=== PATIENT | female | born 1955 | race African-American/Black ===

== ENCOUNTER 2017-06-17 08:00 | Outpatient (CLI) | payer BC | END 2017-06-17 08:01 | disposition home or self-care (01) | LOC: BICMAMMO 08:00 | PROVIDERS: ATTEND Family Medicine | DX: Z12.31 Encounter for screening mammogram for malignant neoplasm of breast (principal); R92.1 Mammographic calcification found on diagnostic imaging of breast; Z80.3 Family history of malignant neoplasm of breast | CPT/HCPCS: 77067; G0202 ==

== ENCOUNTER 2017-12-03 15:21 | Outpatient (CLI) | payer BC ==
--- NOTE | 2017-12-03 16:21 | RAD ---
CHEST 2 VIEWS: Date: 12/03/17 HISTORY: Cough. Bronchitis. FINDINGS: Cardiac silhouette and pulmonary vasculature are unremarkable. Mediastinum is midline. No confluent a ir space consolidation, pneumothorax, or pleural fluid. IMPRESSION: No active cardiopulmonary abnormalities are demonstrated. POS: [facility]
== END 2017-12-03 15:22 | disposition home or self-care (01) ==
LOC: SCSRAD 15:21
PROVIDERS: ATTEND Family Medicine
DX: J45.30 Mild persistent asthma, uncomplicated (principal)
CPT/HCPCS: 71046

== ENCOUNTER 2017-12-30 13:30 | Emergency (ER) | payer BC ==
[2017-12-30 14:22] LABS: #Eosinphils 0.2 thou/uL (0.0-0.7); #Lymphocytes 1.8 thou/uL (1.20-3.40); #Monocytes 0.5 thou/uL (0.11-0.59); #Neutrophils 2.2 thou/uL (1.40-6.50); %Basophils 0.6 % (0.0-1.0); %Eosinophils 5.1 % (0.0-10.0); %Neutrophils 46.3 % (42.0-75.0); Hemoglobin 10.6 g/dL (12.0-16.0); Mean Corpuscular HGB CONC 32.6 g/dL (32.0-36.0); Mean Corpuscular Hemoglobin 24.3 pg (27.0-31.0); Mean Corpuscular Volume 74.4 fL (78.0-98.0); Mean Platelet Volume 8.7 fL (7.4-10.4); Platelet Count 241 thou/uL (130-400); RBC Distribution Width 14.5 % (11.5-14.5); Red Blood Cell (RBC) Count 4.37 mill/uL (4.20-5.40); White Blood Cell (WBC) Count 4.7 thou/uL (4.8-10.8)
--- NOTE | 2017-12-30 14:27 | RAD ---
UPRIGHT PORTABLE CHEST 1 VIEW: Date: 12/30/17 HISTORY: 62-year-old female with history of chest pain, shortness of breath, and mid sternal chest pain. COMPARISON: 12/03/17. FINDINGS: Heart size is within normal limits. The lungs are clear. No pneumonia, edema, pleural effusion, or ot her acute process. IMPRESSION: No acute intrathoracic disease. POS: [facility]
[2017-12-30] MEDS ORDERED: methylPREDNISolone Sod Succ/PF 125 MG/2 ML VIAL ONE (14:28)
[2017-12-30 14:43] LABS: ALT (SGPT) 10 U/L (8-55); AST (SGOT) 12 U/L (5-34); Alkaline Phosphatase 110 U/L (40-150); Anion Gap 12 mmol/L (10-20); BUN (Urea Nitrogen) 24 mg/dL (9.8-20.1); Bilirubin, Total 0.2 mg/dL (0.2-1.2); CK (CPK) 124 U/L (29-168); Calc. Creatinine Clearance 0 mL/min (70-130); Calcium 9.5 mg/dL (7.8-10.44); Carbon Dioxide 26 mmol/L (23-31); Chloride 107 mmol/L (98-107); Estimated GFR-MDRD 81; Globulin 3.2 g/dL (2.4-3.5); Glucose 97 mg/dL (80-115); Lipase 31 U/L (8-78); Potassium 3.9 mmol/L (3.5-5.1); Protein, Total 7.2 g/dL (6.0-8.3); Sodium 141 mmol/L (136-145)
[2017-12-30 14:44] LABS: Elliptocytes SLIGHT = 2-5 cells (100X) (0-1/hpf); Hypochromia SLIGHT = 6-15 cells (100X) (0-5/hpf); MDiff Complete? YES; Microcytosis SLIGHT = 6-15 cells (100X) (0-5/hpf); Ovalocytes SLIGHT = 2-5 cells (100X) (0-1/hpf); PLT Morphology Comment Appears Adequate; Polychromasia SLIGHT = 2-3 cells (100X) (0-2/hpf)
[2017-12-30 14:47] LABS: CKMB 1.4 ng/mL (0-6.6); Troponin I Less than 0.010 ng/mL (< 0.028)
== END 2017-12-30 15:32 | disposition home or self-care (01) ==
LOC: ERS 13:30
DX: J45.901 Unspecified asthma with (acute) exacerbation (principal); K21.9 Gastro-esophageal reflux disease without esophagitis; M19.90 Unspecified osteoarthritis, unspecified site; F41.9 Anxiety disorder, unspecified; I10 Essential (primary) hypertension
CPT/HCPCS: 36415; 71045; 80053; 82550; 82553; 83690; 83880; 84484; 85025; 93005; 94640; 96374; J2930; J7620

== ENCOUNTER 2018-12-17 14:08 | Outpatient (CLI) | payer BC ==
--- NOTE | 2018-12-17 14:53 | MMO ---
Bilateral MAMMO Bilat Diag [facility]. CLINICAL HISTORY: Patient is 63 years old and is seen for diagnostic exam and lump or thickening in the left breast at 1 o'clock. The patient has the following family history of breast cancer: mother, at age 45, malignant (generic). The patient has no personal history of cancer. The patient has a history of left Ultrasound Guided Core Biopsy more than 10 years ago - benign and Breast reduction more than 10 years ago. VIEWS: The views performed were: bilateral craniocaudal with tomosynthesis; bilateral mediolateral oblique with tomosynthesis; bilateral mediolateral with tomosynthesis; and left mediolateral. FILMS COMPARED: The present examination has been compared to prior imaging studies performed at [facility] on 06/17/2017, and at [facility] on 06/24/2013, 01/04/2015 and 01/30/2016. MAMMOGRAM FINDINGS: The breasts are almost entirely fat. There are oval masses with circumscribed margins and multiple associated eggshell or rim calcifications seen in both breasts. Finding remains unchanged from the prior study. There are no suspicious masses, suspicious calcifications, or new areas of architectural distortion. IMPRESSION: THERE IS NO MAMMOGRAPHIC EVIDENCE OF MALIGNANCY. A ROUTINE FOLLOW-UP MAMMOGRAM IN 1 YEAR IS RECOMMENDED. THE RESULTS OF THIS EXAM WERE SENT TO THE PATIENT. ACR BI-RADS Category 2 - Benign finding MAMMOGRAPHY NOTE: 1. A negative mammogram report should not delay a biopsy if a dominant of clinically suspicious mass is present. 2. Approximately 10% to 15% of breast cancers are not detected by mammography. 3. Adenosis and dense breasts may obscure an underlying neoplasm.
== END 2018-12-17 14:09 | disposition home or self-care (01) ==
LOC: BICMAMMO 14:08
PROVIDERS: ATTEND Family Medicine
DX: N63.21 Unspecified lump in the left breast, upper outer quadrant (principal); Z80.3 Family history of malignant neoplasm of breast
CPT/HCPCS: 77066; G0279

== ENCOUNTER 2019-12-27 11:42 | Outpatient (CLI) | payer BC ==
--- NOTE | 2019-12-27 12:58 | MMO ---
Bilateral MAMMO Bilat Screen [facility]. CLINICAL HISTORY: Patient is 64 years old and is seen for screening. The patient has the following family history of breast cancer: mother, at age 45, malignant (generic). The patient has no personal history of cancer. The patient has a history of left Ultrasound Guided Core Biopsy more than 10 years ago - benign and Breast reduction more than 10 years ago. VIEWS: The views performed were: bilateral craniocaudal with tomosynthesis and bilateral mediolateral oblique with tomosynthesis. FILMS COMPARED: The present examination has been compared to prior imaging studies performed at [facility] on 06/17/2017 and 12/17/2018, and at [facility] on 01/04/2015 and 01/30/2016. This study has been interpreted with the assistance of computer-aided detection. MAMMOGRAM FINDINGS: There are scattered fibroglandular densities. There is an asymmetry seen in the upper-outer region of the left breast. In the right breast, there are no suspicious masses, calcifications or areas of architectural distortion. IMPRESSION: ASYMMETRY IN THE LEFT BREAST REQUIRES ADDITIONAL EVALUATION. RECOMMEND DIAGNOSTIC MAMMOGRAM. ULTRASOUND MAY ALSO PROVE USEFUL AT RECALL. THE RESULTS OF THIS EXAM WERE SENT TO THE PATIENT. ACR BI-RADS Category 0 - Incomplete: Need additional imaging evaluation. [facility] will notify the patient of the need for additional imaging services. MAMMOGRAPHY NOTE: 1. A negative mammogram report should not delay a biopsy if a dominant of clinically suspicious mass is present. 2. Approximately 10% to 15% of breast cancers are not detected by mammography. 3. Adenosis and dense breasts may obscure an underlying neoplasm. Reported by: RICCI WILSON MD Electonically Signed: [id number]
== END 2019-12-27 11:43 | disposition home or self-care (01) ==
LOC: BICMAMMO 11:42
PROVIDERS: ATTEND Family Medicine
DX: Z12.31 Encounter for screening mammogram for malignant neoplasm of breast (principal); N64.89 Other specified disorders of breast; Z91.89 Other specified personal risk factors, not elsewhere classified; Z98.890 Other specified postprocedural states; Z80.3 Family history of malignant neoplasm of breast
CPT/HCPCS: 77063; 77067

== ENCOUNTER 2019-12-29 13:22 | Outpatient (CLI) | payer BC ==
--- NOTE | 2019-12-29 15:10 | MMO ---
Left Breast MAMMO Unilat Diag [facility]. CLINICAL HISTORY: Patient is 64 years old and is seen for diagnostic exam. The patient has the following family history of breast cancer: mother, at age 45, malignant (generic). The patient has no personal history of cancer. The patient has a history of left Ultrasound Guided Core Biopsy more than 10 years ago - benign and Breast reduction more than 10 years ago. VIEWS: The views performed were: left craniocaudal with tomosynthesis; left mediolateral oblique with tomosynthesis; and left mediolateral with tomosynthesis. FILMS COMPARED: The present examination has been compared to prior imaging studies performed at [facility] on 06/17/2017, 12/17/2018, 12/27/2019 and 12/29/2019. This study has been interpreted with the assistance of computer-aided detection. MAMMOGRAM FINDINGS: There are scattered fibroglandular densities. Finding 1: There are stable benign appearing calcifications seen in the left breast. Finding 2: There is a new round mass measuring 5 millimeters with indistinct margins seen in the middle region of the left breast at 3 o'clock. IMPRESSION: FINDING 1: STABLE CALCIFICATIONS IN THE LEFT BREAST ARE BENIGN. INCLUDING MULTPLE AREAS OF FAT NECROSIS FINDING 2: NEW MASS IN THE LEFT BREAST IS SUSPICIOUS. AN ULTRASOUND-GUIDED BREAST BIOPSY IS RECOMMENDED. SHADOWING MASS ON ULTRASOUND. FINDINGS AND RECOMMENDATIONS WERE DISCUSSED WITH THE PATIENT PRIOR TO LEAVING THE FACILITY. ALL QUESTIONS ANSWERED. THE RESULTS OF THIS EXAM WERE SENT TO THE PATIENT. ACR BI-RADS Category 4 - Suspicious abnormality - biopsy should be considered MAMMOGRAPHY NOTE: 1. A negative mammogram report should not delay a biopsy if a dominant of clinically suspicious mass is present. 2. Approximately 10% to 15% of breast cancers are not detected by mammography. 3. Adenosis and dense breasts may obscure an underlying neoplasm. Reported by: MACY SIDDIQI MD Electonically Signed: [id number]
--- NOTE | 2019-12-29 15:31 | ULT ---
EXAM: LEFT BREAST ULTRASOUND LIMITED: 12/29/19 HISTORY: Patient presents for additional imaging of the left breast to evaluate a mass in the left breast at 3 o'clock. The left breast is evaluated primarily in the 3 o'clock, 7 cm from the nipple region. There are multi ple areas of fat necrosis noted with shadowing. In addition to these area of fat necrosis, there is a poorly circumscribed hypoechoic mass with shadowing at 3 o'clock 7 cm from the nipple which is suspi cious and corresponds to the abnormal mammographic finding. IMPRESSION: BI-RADS 4: Suspicious Abnormality - Biopsy Should Be Considered Usually requires biopsy. Small poorly circumscribed mass with shadowing in the 3 o'clock position left breast 7 cm from the ni pple corresponding to the area of mammographic concern. Recommend ultrasound guided biopsy. The findings were discussed with the patient and she is scheduled for an ultrasound guided breast bio psy for tomorrow.
== END 2019-12-29 13:23 | disposition home or self-care (01) ==
LOC: BICMAMMO 13:22
PROVIDERS: ATTEND Family Medicine
DX: N64.89 Other specified disorders of breast (principal); R92.1 Mammographic calcification found on diagnostic imaging of breast; N64.1 Fat necrosis of breast
CPT/HCPCS: G0279

== ENCOUNTER → 2019-12-30 | Day surgery (SDC) | payer BC ==
--- NOTE | 2019-12-30 13:40 | MMO ---
FILMS COMPARED: The present examination has been compared to prior imaging studies performed at [facility] on 12/17/2018, 12/27/2019 and 12/29/2019. MAMMOGRAM FINDINGS: There is a biopsy clip seen in the upper-outer region of the left breast. IMPRESSION: BIOPSY CLIP IN THE LEFT BREAST IS CONFIRMED UTILIZING POST PROCEDURE MAMMOGRAM. Reported by: OTTO HUNTER MD Electonically Signed: [id number]
--- NOTE | 2019-12-30 14:16 | ULT ---
Left breast mass biopsy sonographic guided HISTORY: Left breast mass. FINDINGS: After explaining the procedure and answering all questions, the subtle hypoechoic shadowing mass at the superior lateral 3:00 aspect of the left breast was again visualized. Sterile technique, buffered local anesthesia, sonographic guidance, and a superior lateral approach w ere used to carefully advance a 14-gauge biopsy needle to the level of the mass. A single 14-gauge specimen was obtained. Due to the small size of the lesion, distortion prevented a second confidently placed biopsy. Localization clip was placed in the biopsy bed under sonographic control. Patient tolerated the procedure well and was dismissed in good condition. IMPRESSION : Technically successful sonographic guided biopsy left breast mass. Pathology is pending.
== END ==
LOC: BICULT 12:50
PROVIDERS: ATTEND Family Medicine
PROC: 0H9U3ZX Drainage of Left Breast, Percutaneous Approach, Diagnostic (ICD-10-PCS; principal; 2019-12-30)
DX: N60.32 Fibrosclerosis of left breast (principal)
CPT/HCPCS: 19083; 88305; 88342

== ENCOUNTER 2020-01-22 22:58 | Emergency (ER) | payer BC, OTHER ==
[2020-01-22] MEDS ORDERED: Acetaminophen 500 MG TAB ONE (23:29)
[2020-01-22] MEDS ORDERED: Albuterol 200 PUFF (6.7GM INHALER) ONE (23:37)
--- NOTE | 2020-01-22 23:37 | RAD ---
EXAM: Single view of the chest HISTORY: Shortness of breath and fatigue COMPARISON: 12/30/2017 FINDINGS: Single view of the chest shows a normal sized cardiomediastinal silhouette. There is no kleber dence of consolidation, mass, or pleural effusion. The bones are unremarkable IMPRESSION: No evidence of acute cardiopulmonary disease
[2020-01-22 23:45] LABS: #Basophils 0.1 thou/uL (0.0-0.2); #Eosinphils 0.4 thou/uL (0.0-0.7); #Monocytes 0.7 thou/uL (0.11-0.59); #Neutrophils 3.6 thou/uL (1.40-6.50); %Basophils 0.6 % (0.0-1.0); %Eosinophils 5.1 % (0.0-10.0); %Lymphocytes 38.8 % (21.0-51.0); %Monocytes 9.1 % (0.0-10.0); %Neutrophils 46.4 % (42.0-75.0); Hemoglobin 13.5 g/dL (12.0-16.0); Mean Corpuscular HGB CONC 32.9 g/dL (32.0-36.0); Mean Corpuscular Hemoglobin 27.4 pg (27.0-31.0); Mean Corpuscular Volume 83.3 fL (78.0-98.0); Platelet Count 207 thou/uL (130-400); Red Blood Cell (RBC) Count 4.91 mill/uL (4.20-5.40); White Blood Cell (WBC) Count 7.8 thou/uL (4.8-10.8)
[2020-01-23 00:08] LABS: ALT (SGPT) 11 U/L (8-55); AST (SGOT) 10 U/L (5-34); Alkaline Phosphatase 97 U/L (40-110); Anion Gap 12 mmol/L (10-20); BUN (Urea Nitrogen) 20 mg/dL (9.8-20.1); Bilirubin, Total 0.3 mg/dL (0.2-1.2); Calc. Creatinine Clearance 0 mL/min (70-130); Calcium 8.7 mg/dL (7.8-10.44); Carbon Dioxide 27 mmol/L (23-31); Chloride 106 mmol/L (98-107); Estimated GFR-MDRD 77; Globulin 3.3 g/dL (2.4-3.5); Glucose 95 mg/dL (80-115); Potassium 3.6 mmol/L (3.5-5.1); Protein, Total 7.3 g/dL (6.0-8.3); Sodium 141 mmol/L (136-145)
[2020-01-23 02:00] LABS: SARS-CoV-2 NAA Rapid Test Not Detected (NotDetected)
== END 2020-01-23 02:33 | disposition home or self-care (01) ==
LOC: ERS 22:58
DX: J06.9 Acute upper respiratory infection, unspecified (principal); Z20.828 Contact with and (suspected) exposure to other viral communicable diseases; R06.02 Shortness of breath; R07.89 Other chest pain; K21.9 Gastro-esophageal reflux disease without esophagitis; I10 Essential (primary) hypertension; M19.90 Unspecified osteoarthritis, unspecified site; F41.9 Anxiety disorder, unspecified; J45.909 Unspecified asthma, uncomplicated; Z79.899 Other long term (current) drug therapy
CPT/HCPCS: 36415; 71045; 80053; 84484; 85025; 93005; 96360; U0002

== ENCOUNTER 2020-01-25 13:55 | Emergency (ER) | payer BC, OTHER ==
[2020-01-25 15:22] LABS: Hemoglobin 13.1 g/dL (12.0-16.0); Mean Corpuscular HGB CONC 31.7 g/dL (32.0-36.0); Mean Corpuscular Hemoglobin 26.8 pg (27.0-31.0); Mean Corpuscular Volume 84.6 fL (78.0-98.0); Mean Platelet Volume 8.9 fL (7.4-10.4); Platelet Count 206 thou/uL (130-400); RBC Distribution Width 11.9 % (11.5-14.5); Red Blood Cell (RBC) Count 4.89 mill/uL (4.20-5.40); White Blood Cell (WBC) Count 5.4 thou/uL (4.8-10.8)
[2020-01-25 15:44] LABS: ALT (SGPT) 13 U/L (8-55); AST (SGOT) 14 U/L (5-34); Albumin 4.1 g/dL (3.4-4.8); Alkaline Phosphatase 106 U/L (40-110); Anion Gap 11 mmol/L (10-20); BUN (Urea Nitrogen) 20 mg/dL (9.8-20.1); Bilirubin, Total 0.3 mg/dL (0.2-1.2); Calc. Creatinine Clearance 0 mL/min (70-130); Calcium 9.3 mg/dL (7.8-10.44); Carbon Dioxide 27 mmol/L (23-31); Chloride 106 mmol/L (98-107); Estimated GFR-MDRD 84; Globulin 3.4 g/dL (2.4-3.5); Glucose 82 mg/dL (80-115); Potassium 4.2 mmol/L (3.5-5.1); Protein, Total 7.5 g/dL (6.0-8.3); Sodium 140 mmol/L (136-145)
[2020-01-25 15:47] LABS: Eosinophils 6 % (0-10); Hypochromia SLIGHT = 6-15 cells (100X) (0-5/hpf); Lymphocytes 45 % (21-51); MDiff Complete? YES; Monocytes 3 % (0-10); Neutrophil 42 % (42-75); Platelet Morphology Comment Appears Adequate; Polychromasia SLIGHT = 2-3 cells (100X) (0-2/hpf); Reactive Lymphocytes 4 % (0-10)
--- NOTE | 2020-01-25 15:52 | RAD ---
Chest one view HISTORY: Dyspnea. COVID positive. COMPARISON: 01/22/2020. FINDINGS: Cardiac silhouette is magnified by projection. Pulmonary vasculature is unremarkable. Mediastinum is midline. No lobar consolidation or evidence of pneumothorax. IMPRESSION : No abnormalities are demonstrated.
[2020-01-25] MEDS ORDERED: Morphine 4 MG/ML VIAL ONE (17:48)
[2020-01-25] MEDS ORDERED: Ondansetron ODT 4 MG TAB ONE (17:54)
== END 2020-01-25 18:50 | disposition home or self-care (01) ==
LOC: ERS 13:55
DX: R07.89 Other chest pain (principal); K21.9 Gastro-esophageal reflux disease without esophagitis; I10 Essential (primary) hypertension; M19.90 Unspecified osteoarthritis, unspecified site; J45.909 Unspecified asthma, uncomplicated; F41.9 Anxiety disorder, unspecified; F32.9 Major depressive disorder, single episode, unspecified
CPT/HCPCS: 36415; 36416; 71045; 80053; 83690; 83880; 84484; 85025; 85379; 93005; 96374; J2270; Q0162

== ENCOUNTER 2020-08-24 15:58 | Emergency (ER) | payer BC ==
[2020-08-24 16:39] LABS: Bacteria/HPF None Seen HPF (None Seen); Bilirubin Negative (Negative); Blood, Urine Trace (Negative); Clarity Clear (Clear); Glucose, Urine (Dipstick) Normal (Negative); Ketone, Urine Negative (Negative); Leukocyte Negative Leu/uL (Negative); Nitrite Negative (Negative); Protein, Urine (Dipstick) Negative (Neg-Trace); RBC/HPF 0-3 HPF (0-3); Specific Gravity, Urine 1.016 (1.002-1.036); Squamous Epithelial 0-3 HPF (0-3); Urobilinogen Normal mg/dL (Less than 2); WBC/HPF 0-3 HPF (0-3)
[2020-08-24 16:39] LABS: #Eosinphils 0.3 thou/uL (0.0-0.7); #Lymphocytes 1.8 thou/uL (1.20-3.40); #Monocytes 0.6 thou/uL (0.11-0.59); #Neutrophils 3.5 thou/uL (1.40-6.50); %Basophils 0.5 % (0.0-1.0); %Eosinophils 4.3 % (0.0-10.0); %Monocytes 9.8 % (0.0-10.0); %Neutrophils 56.4 % (42.0-75.0); Hemoglobin 11.9 g/dL (12.0-16.0); Mean Corpuscular HGB CONC 31.9 g/dL (32.0-36.0); Mean Corpuscular Hemoglobin 26.9 pg (27.0-31.0); Mean Corpuscular Volume 84.2 fL (78.0-98.0); Mean Platelet Volume 8.3 fL (7.4-10.4); Platelet Count 181 thou/uL (130-400); RBC Distribution Width 12.9 % (11.5-14.5); Red Blood Cell (RBC) Count 4.43 mill/uL (4.20-5.40); White Blood Cell (WBC) Count 6.1 thou/uL (4.8-10.8)
[2020-08-24 17:01] LABS: ALT (SGPT) 12 U/L (8-55); AST (SGOT) 14 U/L (5-34); Albumin 3.8 g/dL (3.4-4.8); Alkaline Phosphatase 97 U/L (40-110); Anion Gap 14 mmol/L (10-20); BUN (Urea Nitrogen) 19 mg/dL (9.8-20.1); Bilirubin, Total 0.2 mg/dL (0.2-1.2); Calc. Creatinine Clearance 0 mL/min (70-130); Calcium 8.8 mg/dL (7.8-10.44); Carbon Dioxide 24 mmol/L (23-31); Chloride 104 mmol/L (98-107); Globulin 3.3 g/dL (2.4-3.5); Glucose 83 mg/dL (80-115); Potassium 3.6 mmol/L (3.5-5.1); Protein, Total 7.1 g/dL (5.8-8.1); Sodium 138 mmol/L (136-145)
== END 2020-08-24 18:30 | disposition home or self-care (01) ==
LOC: ERS 15:58
DX: E11.649 Type 2 diabetes mellitus with hypoglycemia without coma (principal); K21.9 Gastro-esophageal reflux disease without esophagitis; I10 Essential (primary) hypertension; J45.909 Unspecified asthma, uncomplicated; Z79.51 Long term (current) use of inhaled steroids; Z79.899 Other long term (current) drug therapy
CPT/HCPCS: 36415; 36416; 80053; 81003; 81015; 83605; 84484; 85025; 93005

== ENCOUNTER 2021-02-22 | Inpatient (IN) | payer BC | END 2021-02-22 10:39 | disposition home or self-care (01) | DRG 683 | PROVIDERS: ADMIT Internal Medicine ==

== ENCOUNTER 2021-08-03 19:26 | Inpatient (IN) | payer BC, MEDICARE ==
[2021-08-03] MEDS ORDERED: Ondansetron PF 4 MG/2 ML Vial ONE (19:45)
[2021-08-03 20:38] LABS: #Lymphocytes 1.5 thou/uL (1.20-3.40); #Monocytes 0.8 thou/uL (0.11-0.59); #Neutrophils 6.4 thou/uL (1.40-6.50); %Basophils 0.1 % (0.0-1.0); %Lymphocytes 17.3 % (21.0-51.0); %Monocytes 9.2 % (0.0-10.0); %Neutrophils 73.3 % (42.0-75.0); Hemoglobin 16.2 g/dL (12.0-16.0); Mean Corpuscular Hemoglobin 26.6 pg (27.0-31.0); Mean Platelet Volume 8.6 fL (7.4-10.4); Platelet Count 262 thou/uL (130-400); RBC Distribution Width 12.6 % (11.5-14.5); Red Blood Cell (RBC) Count 6.08 mill/uL (4.20-5.40); White Blood Cell (WBC) Count 8.7 thou/uL (4.8-10.8)
[2021-08-03 20:58] LABS: ALT (SGPT) 12 U/L (8-55); AST (SGOT) 20 U/L (5-34); Albumin 4.9 g/dL (3.4-4.8); Alkaline Phosphatase 111 U/L (40-110); Anion Gap 23 mmol/L (10-20); BUN (Urea Nitrogen) 58 mg/dL (9.8-20.1); Bilirubin, Total 0.6 mg/dL (0.2-1.2); Calc. Creatinine Clearance 0 mL/min (70-130); Carbon Dioxide 20 mmol/L (23-31); Globulin 3.9 g/dL (2.4-3.5); Glucose 112 mg/dL (80-115); Lipase 23 U/L (8-78); Potassium 3.2 mmol/L (3.5-5.1); Protein, Total 8.8 g/dL (5.8-8.1)
[2021-08-03 21:02] LABS: Chloride 99 mmol/L (98-107); Sodium 139 mmol/L (136-145)
[2021-08-03 22:46] LABS: SARS-CoV-2 NAA Rapid Test Not Detected (NotDetected)
[2021-08-03 22:59] LABS: Bacteria/HPF 2+ HPF (None Seen); Bilirubin Negative (Negative); Blood, Urine 1+ (Negative); Clarity Turbid (Clear); Glucose, Urine (Dipstick) Normal (Negative); Ketone, Urine Negative (Negative); Leukocyte 25 Leu/uL (Negative); Nitrite Negative (Negative); Protein, Urine (Dipstick) 70 mg/dL (Neg-Trace); Specific Gravity, Urine 1.022 (1.002-1.036); Urobilinogen Normal mg/dL (Less than 2); WBC/HPF 21-50 HPF (0-3); pH, Urine 5.5 (5.0-9.0)
[2021-08-03 23:36] VITALS: BMI 26.1
[2021-08-03] MEDS ORDERED: Ondansetron ODT 4 MG TAB SL PRN (23:45)
[2021-08-03] MEDS ORDERED: Sodium Chloride 0.9% 1,000 ML IV SCH (23:45)
[2021-08-03] MEDS ORDERED: Ondansetron PF 4 MG/2 ML Vial IVP PRN (23:45)
[2021-08-03] MEDS ORDERED: Acetaminophen 325 MG TAB PO PRN (23:45)
[2021-08-04] MEDS ORDERED: Electrolyte Replacement Protocol 1 EACH FS SCH (00:30)
[2021-08-04] MEDS: cefTRIAXone\\ROCEPHIN 1 GM in Sodium Chloride 0.9% 100 ML IVPB SCH (00:41)
[2021-08-04] MEDS ORDERED: Potassium Chloride 20 MEQ TAB PO SCH (00:45)
[2021-08-04] MEDS ORDERED: Hydrocerin (Eucerin) Cream 120 gm Jar TOP PRN (05:53)
[2021-08-04] MEDS ORDERED: Calcium Carbonate 500 MG ChewTAB PO PRN (05:53)
[2021-08-04] MEDS ORDERED: Loperamide HCl 2 MG CAP PO PRN (05:53)
[2021-08-04] MEDS ORDERED: Acetaminophen 500 MG TAB PO PRN (05:53)
[2021-08-04] MEDS ORDERED: Ondansetron ODT 4 MG TAB PO PRN (05:53)
[2021-08-04] MEDS ORDERED: HYDROcodone/Acetaminophen 5/325 mg Tablet PO PRN (05:53)
[2021-08-04] MEDS ORDERED: hydrALAZINE 20 MG/ML VIAL SLOW IVP PRN (05:53)
[2021-08-04] MEDS ORDERED: Sodium Chloride 0.65% Nasal 44 ML BOT EA NARE PRN (05:53)
[2021-08-04] MEDS ORDERED: Artificial Tear Sol 15 ML BOT EA EYE PRN (05:53)
[2021-08-04] MEDS ORDERED: Senokot S 8.6-50 MG TAB PO PRN (05:53)
[2021-08-04] MEDS ORDERED: GUAIFENESIN SF SOLN 200 MG/10 ML UDCUP PO PRN (05:53)
[2021-08-04] MEDS ORDERED: Zolpidem Tartrate 5 MG TAB PO PRN (05:53)
[2021-08-04 06:18] LABS: Anion Gap 12 mmol/L (10-20); BUN (Urea Nitrogen) 55 mg/dL (9.8-20.1); Calc. Creatinine Clearance 26 mL/min (70-130); Calcium 8.3 mg/dL (7.8-10.44); Carbon Dioxide 26 mmol/L (23-31); Chloride 104 mmol/L (98-107); Glucose 94 mg/dL (80-115); Magnesium 2.1 mg/dL (1.6-2.6); Potassium 3.6 mmol/L (3.5-5.1); Sodium 138 mmol/L (136-145)
[2021-08-04] MEDS: Lactated Ringer's 1,000 ML IV SCH ×2 (08:02→16:10)
[2021-08-04] MEDS: Amitriptyline HCl 25 MG TAB PO SCH (08:03)
[2021-08-04] MEDS: Escitalopram Oxalate 10 mg Tablet PO SCH (08:04)
[2021-08-04] MEDS: Rosuvastatin 10 MG TAB PO SCH (08:04)
[2021-08-04] MEDS: Bupropion 150 MG XL TAB PO SCH (08:04)
[2021-08-04] MEDS: Enoxaparin Sodium 30 MG/0.3 ML SYRINGE SC SCH (08:07)
[2021-08-04] MEDS: Ondansetron PF 4 MG/2 ML Vial IVP PRN ×2 (09:08→16:16)
[2021-08-04 09:24] LABS: Band 1 % (5-11); Eosinophils 1 % (0-10); Hemoglobin 13.6 g/dL (12.0-16.0); Lymphocytes 35 % (21-51); MDiff Complete? YES; Mean Corpuscular HGB CONC 31.8 g/dL (32.0-36.0); Mean Corpuscular Hemoglobin 26.2 pg (27.0-31.0); Mean Corpuscular Volume 82.5 fL (78.0-98.0); Mean Platelet Volume 8.6 fL (7.4-10.4); Monocytes 9 % (0-10); Neutrophil 44 % (42-75); Platelet Count 237 thou/uL (130-400); Platelet Morphology Comment Appears Adequate; RBC Distribution Width 12.4 % (11.5-14.5); Reactive Lymphocytes 10 % (0-10); Red Blood Cell (RBC) Count 5.17 mill/uL (4.20-5.40); Target Cells SLIGHT = 2-5 cells (100X) (0-1/hpf); White Blood Cell (WBC) Count 8.2 thou/uL (4.8-10.8)
[2021-08-05] MEDS: cefTRIAXone\\ROCEPHIN 1 GM in Sodium Chloride 0.9% 100 ML IVPB SCH (01:49)
[2021-08-05] MEDS: Lactated Ringer's 1,000 ML IV SCH (05:00)
[2021-08-05] MEDS: Ondansetron PF 4 MG/2 ML Vial IVP PRN (05:00)
[2021-08-05 06:41] LABS: Hemoglobin 13.1 g/dL (12.0-16.0); Mean Corpuscular HGB CONC 32.8 g/dL (32.0-36.0); Mean Corpuscular Hemoglobin 27.1 pg (27.0-31.0); Mean Corpuscular Volume 82.9 fL (78.0-98.0); Mean Platelet Volume 8.7 fL (7.4-10.4); Platelet Count 190 thou/uL (130-400); RBC Distribution Width 12.3 % (11.5-14.5); Red Blood Cell (RBC) Count 4.84 mill/uL (4.20-5.40); White Blood Cell (WBC) Count 5.9 thou/uL (4.8-10.8)
[2021-08-05 07:30] LABS: Anion Gap 14 mmol/L (10-20); BUN (Urea Nitrogen) 26 mg/dL (9.8-20.1); Calc. Creatinine Clearance 64 mL/min (70-130); Carbon Dioxide 26 mmol/L (23-31); Chloride 103 mmol/L (98-107); Glucose 88 mg/dL (80-115); Magnesium 2.2 mg/dL (1.6-2.6); Phosphorus 2.7 mg/dL (2.3-4.7); Potassium 2.9 mmol/L (3.5-5.1); Sodium 140 mmol/L (136-145)
[2021-08-05] MEDS: Enoxaparin Sodium 30 MG/0.3 ML SYRINGE SC SCH (08:07)
[2021-08-05] MEDS: Rosuvastatin 10 MG TAB PO SCH (08:07)
[2021-08-05] MEDS: Escitalopram Oxalate 10 mg Tablet PO SCH (08:07)
[2021-08-05] MEDS: Amitriptyline HCl 25 MG TAB PO SCH (08:07)
[2021-08-05] MEDS: Bupropion 150 MG XL TAB PO SCH (08:07)
[2021-08-05] MEDS ORDERED: Potassium Chloride 20 MEQ TAB PO SCH (08:15)
[2021-08-05 08:20] LABS: Eosinophils 1 % (0-10); Lymphocytes 29 % (21-51); MDiff Complete? YES; Monocytes 4 % (0-10); Neutrophil 60 % (42-75); RBC Morphology Normal; Reactive Lymphocytes 5 % (0-10)
[2021-08-05] MEDS: Potassium Chloride 20 MEQ TAB PO SCH ×2 (11:50→14:49)
[2021-08-06] MEDS: cefTRIAXone\\ROCEPHIN 1 GM in Sodium Chloride 0.9% 100 ML IVPB SCH (00:37)
[2021-08-06] MEDS: Ondansetron PF 4 MG/2 ML Vial IVP PRN (00:38)
[2021-08-06 06:48] LABS: Anion Gap 3 mmol/L (10-20); BUN (Urea Nitrogen) 17 mg/dL (9.8-20.1); Calc. Creatinine Clearance 70 mL/min (70-130); Calcium 9.6 mg/dL (7.8-10.44); Carbon Dioxide 36 mmol/L (23-31); Chloride 104 mmol/L (98-107); Glucose 101 mg/dL (80-115); Potassium 4.3 mmol/L (3.5-5.1); Sodium 139 mmol/L (136-145)
[2021-08-06] MEDS: Amitriptyline HCl 25 MG TAB PO SCH (08:22)
[2021-08-06] MEDS: Rosuvastatin 10 MG TAB PO SCH (08:22)
[2021-08-06] MEDS: Bupropion 150 MG XL TAB PO SCH (08:23)
[2021-08-06] MEDS: Escitalopram Oxalate 10 mg Tablet PO SCH (08:23)
[2021-08-06] MEDS: Enoxaparin Sodium 30 MG/0.3 ML SYRINGE SC SCH (08:23)
[2021-08-06 08:40] VITALS: BP 158/79; TEMP 98.2
== END 2021-08-06 11:53 | disposition home or self-care (01) | DRG 683 ==
LOC: ERS 19:26 → T4-A 22:35
PROVIDERS: ADMIT Student in an Organized Health Care Education/Training Program; ATTEND Internal Medicine
DX: N17.9 Acute kidney failure, unspecified (principal); N39.0 Urinary tract infection, site not specified; E87.2 Acidosis; M62.82 Rhabdomyolysis; Z20.822 Contact with and (suspected) exposure to COVID-19; A05.9 Bacterial foodborne intoxication, unspecified; K21.9 Gastro-esophageal reflux disease without esophagitis; I10 Essential (primary) hypertension; K59.00 Constipation, unspecified; M19.90 Unspecified osteoarthritis, unspecified site; E87.6 Hypokalemia; J45.909 Unspecified asthma, uncomplicated; E78.5 Hyperlipidemia, unspecified; F41.9 Anxiety disorder, unspecified; F32.A Depression, unspecified; F12.10 Cannabis abuse, uncomplicated; E86.0 Dehydration; Z90.710 Acquired absence of both cervix and uterus; Z79.899 Other long term (current) drug therapy
CPT/HCPCS: 0241U; 36415; 74176; 80048; 80053; 81003; 81015; 82550; 83605; 83690; 83735; 84100; 85025; 94640; 96374; J0696; J1650; J2405; J3490; J7050; J7120; J7620

== ENCOUNTER 2021-12-03 15:53 | Inpatient (IN) | payer BC, MEDICARE ==
[2021-12-03 16:25] LABS: #Lymphocytes 1.1 thou/uL (1.20-3.40); #Monocytes 0.2 thou/uL (0.11-0.59); #Neutrophils 7.8 thou/uL (1.40-6.50); %Basophils 0.3 % (0.0-1.0); %Eosinophils 0.1 % (0.0-10.0); %Lymphocytes 11.8 % (21.0-51.0); %Monocytes 2.4 % (0.0-10.0); %Neutrophils 85.4 % (42.0-75.0); Hemoglobin 13.9 g/dL (12.0-16.0); Mean Corpuscular Hemoglobin 26.3 pg (27.0-31.0); Mean Corpuscular Volume 82.2 fL (78.0-98.0); Mean Platelet Volume 8.4 fL (7.4-10.4); Platelet Count 258 thou/uL (130-400); RBC Distribution Width 12.5 % (11.5-14.5); Red Blood Cell (RBC) Count 5.29 mill/uL (4.20-5.40); White Blood Cell (WBC) Count 9.1 thou/uL (4.8-10.8)
[2021-12-03] MEDS ORDERED: Ondansetron ODT 4 MG TAB ONE (16:46)
[2021-12-03 16:47] LABS: ALT (SGPT) 15 U/L (8-55); AST (SGOT) 18 U/L (5-34); Albumin 4.6 g/dL (3.4-4.8); Alkaline Phosphatase 127 U/L (40-110); Anion Gap 15 mmol/L (10-20); BUN (Urea Nitrogen) 13 mg/dL (9.8-20.1); Bilirubin, Total 0.4 mg/dL (0.2-1.2); Calc. Creatinine Clearance 0 mL/min (70-130); Calcium 10.3 mg/dL (7.8-10.44); Carbon Dioxide 22 mmol/L (23-31); Chloride 101 mmol/L (98-107); Globulin 4.3 g/dL (2.4-3.5); Glucose 141 mg/dL (80-115); Lipase 21 U/L (8-78); Potassium 3.4 mmol/L (3.5-5.1); Protein, Total 8.9 g/dL (5.8-8.1); Sodium 135 mmol/L (136-145)
[2021-12-03] MEDS ORDERED: Ondansetron PF 4 MG/2 ML Vial ONE (18:23)
[2021-12-03 18:56] LABS: Bacteria/HPF None Seen HPF (None Seen); Bilirubin Negative (Negative); Blood, Urine 2+ (Negative); Clarity Clear (Clear); Glucose, Urine (Dipstick) 30 mg/dL (Negative); Ketone, Urine 20 mg/dL (Negative); Leukocyte Negative Leu/uL (Negative); Nitrite Negative (Negative); Protein, Urine (Dipstick) 100 mg/dL (Neg-Trace); RBC/HPF Greater than 50 HPF (0-3); Specific Gravity, Urine 1.023 (1.002-1.036); Squamous Epithelial 0-3 HPF (0-3); Urobilinogen Normal mg/dL (Less than 2); WBC/HPF 0-3 HPF (0-3); pH, Urine 8.5 (5.0-9.0)
[2021-12-03] MEDS ORDERED: Haloperidol Lactate 5 MG/ML VIAL ONE (21:16)
[2021-12-03 23:33] LABS: Magnesium 1.6 mg/dL (1.6-2.6)
[2021-12-03] MEDS ORDERED: Promethazine HCl 12.5 MG SUPP ONE (23:50)
[2021-12-03] MEDS ORDERED: Promethazine HCl 25 MG/ML VIAL IM SCH (23:59)
[2021-12-04 00:55] LABS: Amphetamine Not Detected (NotDetected); Barbiturates Screen Not Detected (NotDetected); Benzodiazepine Screen Not Detected (NotDetected); Cocaine Metabolite Screen Not Detected (NotDetected); Methadone Not Detected (NotDetected); Methamphetamine Not Detected (NotDetected); Opiate Screen Not Detected (NotDetected); Oxycodone Screen Not Detected (NotDetected); Phencyclidine (PCP) Not Detected (NotDetected); THC/Cannabinoid Screen Detected (NotDetected); Tricyclic Screen Not Detected (NotDetected)
[2021-12-04 01:01] LABS: Acetaminophen Less than 10.0 mcg/mL (10.0-30.0); Alcohol Less than 10 mg/dL (Less than 10); Salicylate Less than 8.0 mg/dL (15.0-30.0)
[2021-12-04] MEDS ORDERED: Ondansetron ODT 4 MG TAB SL PRN (02:15)
[2021-12-04] MEDS ORDERED: Ondansetron PF 4 MG/2 ML Vial IVP PRN ×2 (02:15→07:45)
[2021-12-04] MEDS ORDERED: Acetaminophen 325 MG TAB PO PRN (02:15)
[2021-12-04] MEDS: Lactated Ringer's 1,000 ML IV SCH ×2 (04:10→12:23)
[2021-12-04] MEDS ORDERED: Promethazine HCl 25 MG in Sodium Chloride 0.9% 50 ML IVPB PRN (07:45)
[2021-12-04] MEDS ORDERED: hydrALAZINE 20 MG/ML VIAL SLOW IVP PRN (07:45)
[2021-12-04] MEDS ORDERED: Potassium Chloride 20 MEQ TAB PO SCH (07:45)
[2021-12-04] MEDS ORDERED: Acetaminophen 500 MG TAB PO PRN (07:45)
[2021-12-04] MEDS ORDERED: Piperacillin/Tazobactam 3.375 GM in Sodium Chloride 0.9% 100 ML IVPB SCH ×2 (07:45→08:00)
[2021-12-04] MEDS ORDERED: Lorazepam 1 MG TAB PO PRN (07:45)
[2021-12-04] MEDS ORDERED: Ondansetron ODT 4 MG TAB PO PRN (07:45)
[2021-12-04] MEDS ORDERED: Piperacillin/Tazobactam 3.375 GM VIAL ONE (08:08)
[2021-12-04] MEDS ORDERED: Potassium Chloride 20 MEQ TAB ONE (08:09)
[2021-12-04] MEDS: Sodium Chloride 0.9% 1,000 ML IV SCH ×2 (08:20→17:34)
[2021-12-04] MEDS: Potassium Chloride 20 MEQ TAB PO SCH ×2 (08:20→17:34)
[2021-12-04] MEDS ORDERED: Ondansetron ODT 4 MG TAB ONE (08:43)
[2021-12-04] MEDS ORDERED: Famotidine/PF 20 mg/2ml Vial SLOW IVP SCH (09:00)
[2021-12-04] MEDS: Pregabalin 50 MG CAP PO SCH ×3 (12:23→20:47)
[2021-12-04] MEDS: Bupropion 150 MG XL TAB PO SCH (12:23)
[2021-12-04] MEDS: Famotidine 40 MG/4 ML VIAL SLOW IVP SCH ×2 (12:24→20:46)
[2021-12-04] MEDS: Piperacillin/Tazobactam 3.375 GM in Sodium Chloride 0.9% 100 ML IVPB SCH ×2 (12:25→20:53)
[2021-12-04 12:35] VITALS: BMI 25.5
[2021-12-04] MEDS: Escitalopram Oxalate 10 mg Tablet PO SCH (20:47)
[2021-12-04] MEDS: Amitriptyline HCl 25 MG TAB PO SCH (20:47)
[2021-12-05] MEDS: Sodium Chloride 0.9% 1,000 ML IV SCH ×3 (03:29→23:42)
[2021-12-05] MEDS: Piperacillin/Tazobactam 3.375 GM in Sodium Chloride 0.9% 100 ML IVPB SCH ×3 (03:38→20:05)
[2021-12-05 06:17] LABS: #Lymphocytes 1.9 thou/uL (1.20-3.40); #Neutrophils 4.4 thou/uL (1.40-6.50); %Basophils 0.2 % (0.0-1.0); %Eosinophils 0.6 % (0.0-10.0); %Lymphocytes 25.5 % (21.0-51.0); %Neutrophils 60.7 % (42.0-75.0); Hemoglobin 12.9 g/dL (12.0-16.0); Mean Corpuscular HGB CONC 31.2 g/dL (32.0-36.0); Mean Corpuscular Volume 83.3 fL (78.0-98.0); Mean Platelet Volume 8.5 fL (7.4-10.4); Platelet Count 225 thou/uL (130-400); RBC Distribution Width 12.8 % (11.5-14.5); Red Blood Cell (RBC) Count 4.96 mill/uL (4.20-5.40); White Blood Cell (WBC) Count 7.3 thou/uL (4.8-10.8)
[2021-12-05 06:52] LABS: ALT (SGPT) 12 U/L (8-55); AST (SGOT) 14 U/L (5-34); Albumin 3.6 g/dL (3.4-4.8); Alkaline Phosphatase 88 U/L (40-110); Anion Gap 14 mmol/L (10-20); BUN (Urea Nitrogen) 24 mg/dL (9.8-20.1); Bilirubin, Total 0.7 mg/dL (0.2-1.2); Calc. Creatinine Clearance 36 mL/min (70-130); Calcium 8.9 mg/dL (7.8-10.44); Carbon Dioxide 21 mmol/L (23-31); Chloride 109 mmol/L (98-107); Globulin 3.4 g/dL (2.4-3.5); Glucose 98 mg/dL (80-115); Potassium 4.1 mmol/L (3.5-5.1); Sodium 140 mmol/L (136-145)
[2021-12-05] MEDS: Potassium Chloride 20 MEQ TAB PO SCH ×2 (08:52→16:45)
[2021-12-05] MEDS: Famotidine 40 MG/4 ML VIAL SLOW IVP SCH (08:53)
[2021-12-05] MEDS: Bupropion 150 MG XL TAB PO SCH (08:53)
[2021-12-05] MEDS: Pregabalin 50 MG CAP PO SCH ×3 (08:53→20:05)
[2021-12-05] MEDS: Amitriptyline HCl 25 MG TAB PO SCH (20:05)
[2021-12-05] MEDS: Escitalopram Oxalate 10 mg Tablet PO SCH (20:05)
[2021-12-06] MEDS: Sodium Chloride 0.9% 1,000 ML IV SCH ×2 (02:15→08:35)
[2021-12-06] MEDS: Piperacillin/Tazobactam 3.375 GM in Sodium Chloride 0.9% 100 ML IVPB SCH ×2 (03:38→11:54)
[2021-12-06 08:29] VITALS: BP 135/76; TEMP 98.4
[2021-12-06] MEDS: Bupropion 150 MG XL TAB PO SCH (08:35)
[2021-12-06] MEDS: Pregabalin 50 MG CAP PO SCH (08:35)
[2021-12-06] MEDS: Potassium Chloride 20 MEQ TAB PO SCH (08:35)
[2021-12-06] MEDS ORDERED: Famotidine 40 MG/4 ML VIAL SLOW IVP SCH (09:00)
== END 2021-12-06 14:54 | disposition home or self-care (01) | DRG 392 ==
LOC: ERS 15:53 → ERHOLD 12-04 00:43 → OBSVTOIN 12-04 07:45 → T4-A 12-04 09:35
PROVIDERS: ADMIT Family Medicine; ATTEND Internal Medicine
DX: R11.2 Nausea with vomiting, unspecified (principal); N39.0 Urinary tract infection, site not specified; N17.9 Acute kidney failure, unspecified; I12.9 Hypertensive chronic kidney disease with stage 1 through stage 4 chronic kidney disease, or unspecified chronic kidney disease; N18.9 Chronic kidney disease, unspecified; F12.10 Cannabis abuse, uncomplicated; K21.9 Gastro-esophageal reflux disease without esophagitis; M19.90 Unspecified osteoarthritis, unspecified site; F32.A Depression, unspecified; F41.9 Anxiety disorder, unspecified; E78.5 Hyperlipidemia, unspecified; E87.6 Hypokalemia; E66.9 Obesity, unspecified; Z90.710 Acquired absence of both cervix and uterus; Z79.899 Other long term (current) drug therapy; Z68.25 Body mass index [BMI] 25.0-25.9, adult
CPT/HCPCS: 36415; 74176; 76705; 80053; 80306; 80307; 81003; 81015; 83605; 83690; 83735; 85025; 93005; G0378; J1630; J2405; J2543; J2550; J3490; J7050; J7120; Q0162; U0003; U0005

== ENCOUNTER 2021-12-24 10:26 | Outpatient (CLI) | payer BC | END 2021-12-24 10:27 | disposition home or self-care (01) | LOC: BICMAMMO 10:26 | PROVIDERS: ATTEND Family Medicine | DX: N63.22 Unspecified lump in the left breast, upper inner quadrant (principal) | CPT/HCPCS: 77066; G0279 ==

== ENCOUNTER 2022-01-31 08:03 | Emergency (ER) | payer OTHER, MEDICARE | END 2022-01-31 09:10 | disposition home or self-care (01) | LOC: ERS 08:03 | DX: S01.511A Laceration without foreign body of lip, initial encounter (principal); K21.9 Gastro-esophageal reflux disease without esophagitis; I10 Essential (primary) hypertension; Z79.899 Other long term (current) drug therapy; W01.198A Fall on same level from slipping, tripping and stumbling with subsequent striking against other object, initial encounter | CPT/HCPCS: 99282 ==

== ENCOUNTER 2022-08-28 16:09 | Emergency (ER) | payer BC ==
[2022-08-28 17:13] LABS: Hemoglobin 12.3 g/dL (12.0-16.0); Mean Corpuscular HGB CONC 32.1 g/dL (32.0-36.0); Mean Corpuscular Hemoglobin 26.6 pg (27.0-31.0); Mean Corpuscular Volume 82.8 fl (78.0-98.0); Platelet Count 224 10x3/uL (130-400); RBC Distribution Width 12.3 % (11.5-14.5); Red Blood Cell (RBC) Count 4.64 mill/uL (4.20-5.40); White Blood Cell (WBC) Count 5.1 10x3/uL (4.8-10.8)
[2022-08-28] MEDS ORDERED: Ondansetron PF 4 MG/2 ML Vial ONE (17:29)
[2022-08-28 17:34] LABS: ALT (SGPT) 8 U/L (8-55); AST (SGOT) 15 U/L (5-34); Albumin 3.6 g/dL (3.4-4.8); Alkaline Phosphatase 81 U/L (40-110); Anion Gap 16 mmol/L (10-20); BUN (Urea Nitrogen) 51 mg/dL (9.8-20.1); Bilirubin, Total 0.2 mg/dL (0.2-1.2); Calc. Creatinine Clearance 0 mL/min (70-130); Calcium 8.7 mg/dL (7.8-10.44); Carbon Dioxide 24 mmol/L (23-31); Chloride 101 mmol/L (98-107); Eosinophils 2 % (0-10); Estimated GFR 21; Globulin 3.1 g/dL (2.4-3.5); Glucose 90 mg/dL (80-115); Lymphocytes 31 % (21-51); MDiff Complete? YES; Monocytes 14 % (0-10); Neutrophil 45 % (42-75); Platelet Morphology Comment Appears Adequate; Potassium 3.3 mmol/L (3.5-5.1); Protein, Total 6.7 g/dL (5.8-8.1); RBC Morphology Normal; Reactive Lymphocytes 8 % (0-10); Sodium 138 mmol/L (136-145)
== END 2022-08-28 19:11 | disposition home or self-care (01) ==
LOC: ERS 16:09
DX: E86.0 Dehydration (principal); K21.9 Gastro-esophageal reflux disease without esophagitis; I10 Essential (primary) hypertension; J45.909 Unspecified asthma, uncomplicated; Z79.899 Other long term (current) drug therapy
CPT/HCPCS: 80053; 85025; 93005; 96361; 96374; J2405

== ENCOUNTER 2022-08-31 04:44 | Observation (INO) | payer BC, MEDICAID ==
[2022-08-31] MEDS ORDERED: Dexamethasone 4 MG TAB ONE (05:18)
[2022-08-31] MEDS ORDERED: Ipratropium/Albuterol 3 ML NEB ONE (05:24)
[2022-08-31 06:18] LABS: SARS-CoV-2 NAA Rapid Test Not Detected (NotDetected)
[2022-08-31] MEDS ORDERED: Magnesium 2 GM/50 ML BAG (IN WATER) ONE (06:41)
[2022-08-31] MEDS ORDERED: Albuterol 2.5 MG/0.5 ML NEB ONE (06:42)
[2022-08-31 07:12] LABS: #Eosinphils 0.2 thou/uL (0.0-0.7); #Lymphocytes 1.4 thou/uL (1.20-3.40); #Monocytes 0.5 thou/uL (0.11-0.59); #Neutrophils 3.7 thou/uL (1.40-6.50); %Basophils 0.6 % (0.0-1.0); %Lymphocytes 23.8 % (21.0-51.0); %Monocytes 7.8 % (0.0-10.0); %Neutrophils 63.9 % (42.0-75.0); Mean Corpuscular HGB CONC 32.7 g/dL (32.0-36.0); Mean Corpuscular Hemoglobin 27.1 pg (27.0-31.0); Platelet Count 164 10x3/uL (130-400); Red Blood Cell (RBC) Count 4.04 mill/uL (4.20-5.40); White Blood Cell (WBC) Count 5.9 10x3/uL (4.8-10.8)
[2022-08-31 07:33] LABS: ALT (SGPT) 12 U/L (8-55); AST (SGOT) 16 U/L (5-34); Albumin 3.6 g/dL (3.4-4.8); Alkaline Phosphatase 86 U/L (40-110); Anion Gap 12 mmol/L (10-20); BUN (Urea Nitrogen) 21 mg/dL (9.8-20.1); Bilirubin, Total Less than 0.2 mg/dL (0.2-1.2); Calc. Creatinine Clearance 0 mL/min (70-130); Calcium 8.8 mg/dL (7.8-10.44); Carbon Dioxide 25 mmol/L (23-31); Chloride 106 mmol/L (98-107); Estimated GFR 79; Globulin 2.9 g/dL (2.4-3.5); Glucose 131 mg/dL (80-115); Potassium 3.2 mmol/L (3.5-5.1); Protein, Total 6.5 g/dL (5.8-8.1); Sodium 140 mmol/L (136-145)
[2022-08-31] MEDS ORDERED: Guaifenesin DM 100-10/5 ML UDCUP PO PRN (07:34)
[2022-08-31] MEDS ORDERED: Acetaminophen 325 MG TAB PO PRN (07:34)
[2022-08-31] MEDS ORDERED: Ondansetron PF 4 MG/2 ML Vial IVP PRN (07:34)
[2022-08-31] MEDS ORDERED: Senokot S 8.6-50 MG TAB PO PRN (07:34)
[2022-08-31] MEDS ORDERED: HYDROcodone/Acetaminophen 5/325 mg Tablet PO PRN (07:34)
[2022-08-31 09:40] VITALS: BMI 25.0
[2022-08-31] MEDS: methylPREDNISolone Sod Succ 40 MG VIAL IVP SCH ×3 (13:40→23:27)
[2022-08-31] MEDS: Ipratropium/Albuterol 3 ML NEB NEB SCH ×2 (15:04→19:20)
[2022-08-31] MEDS: Cefdinir 300 MG CAP PO SCH (19:45)
[2022-08-31] MEDS ORDERED: cloNIDine 0.1 MG TAB PO SCH (21:00)
[2022-08-31] MEDS: Pregabalin 50 MG CAP PO SCH (21:10)
[2022-09-01] MEDS: Ipratropium/Albuterol 3 ML NEB NEB SCH ×2 (00:12→07:52)
[2022-09-01] MEDS: methylPREDNISolone Sod Succ 40 MG VIAL IVP SCH (05:20)
[2022-09-01 06:42] LABS: #Lymphocytes 0.6 thou/uL (1.20-3.40); #Monocytes 0.1 thou/uL (0.11-0.59); #Neutrophils 6.2 thou/uL (1.40-6.50); %Eosinophils 0.2 % (0.0-10.0); %Lymphocytes 9.1 % (21.0-51.0); %Monocytes 1.9 % (0.0-10.0); %Neutrophils 88.8 % (42.0-75.0); Hemoglobin 11.2 g/dL (12.0-16.0); Mean Corpuscular HGB CONC 32.1 g/dL (32.0-36.0); Mean Corpuscular Hemoglobin 26.8 pg (27.0-31.0); Mean Corpuscular Volume 83.4 fl (78.0-98.0); Mean Platelet Volume 9.1 fL (7.4-10.4); Platelet Count 192 10x3/uL (130-400); RBC Distribution Width 12.3 % (11.5-14.5)
[2022-09-01 06:55] LABS: Anion Gap 13 mmol/L (10-20); BUN (Urea Nitrogen) 27 mg/dL (9.8-20.1); Calc. Creatinine Clearance 71 mL/min (70-130); Calcium 8.9 mg/dL (7.8-10.44); Carbon Dioxide 25 mmol/L (23-31); Chloride 106 mmol/L (98-107); Estimated GFR 80; Glucose 143 mg/dL (80-115); Potassium 3.7 mmol/L (3.5-5.1); Sodium 140 mmol/L (136-145)
[2022-09-01] MEDS ORDERED: Electrolyte Replacement Protocol 1 EACH FS SCH (08:30)
[2022-09-01] MEDS: Bupropion 150 MG XL TAB PO SCH (08:35)
[2022-09-01] MEDS: Cefdinir 300 MG CAP PO SCH (08:35)
[2022-09-01 08:44] VITALS: BP 129/74; TEMP 97.7
[2022-09-01] MEDS ORDERED: Electrolyte Replacement Protocol FS PRN (08:45)
[2022-09-01] MEDS ORDERED: Montelukast Sodium 10 mg Tablet PO SCH (09:00)
[2022-09-01] MEDS ORDERED: Doxycycline 100 MG CAP PO SCH (09:00)
[2022-09-01] MEDS ORDERED: Rosuvastatin 10 MG TAB PO SCH (09:00)
[2022-09-01] MEDS: Pregabalin 50 MG CAP PO SCH (10:14)
[2022-09-01] MEDS ORDERED: Magnesium 2 GM/50 ML(in water) 2 GM in Premix Bag 1 BAG IVPB SCH (10:15)
== END 2022-09-01 11:02 | disposition home or self-care (01) ==
LOC: ERS 04:44 → MSONC 07:36
PROVIDERS: ADMIT Internal Medicine; ATTEND Internal Medicine
DX: J45.901 Unspecified asthma with (acute) exacerbation (principal); J20.9 Acute bronchitis, unspecified; E87.6 Hypokalemia; E83.42 Hypomagnesemia; E78.5 Hyperlipidemia, unspecified; I12.9 Hypertensive chronic kidney disease with stage 1 through stage 4 chronic kidney disease, or unspecified chronic kidney disease; N18.2 Chronic kidney disease, stage 2 (mild); D63.1 Anemia in chronic kidney disease; F17.200 Nicotine dependence, unspecified, uncomplicated; E03.9 Hypothyroidism, unspecified; M19.90 Unspecified osteoarthritis, unspecified site; K21.9 Gastro-esophageal reflux disease without esophagitis; Z79.899 Other long term (current) drug therapy; Z20.822 Contact with and (suspected) exposure to COVID-19
CPT/HCPCS: 36415; 71045; 80048; 80053; 83735; 85025; 87070; 87205; 93005; 94640; 94644; 96365; 96372; 96375; 96376; G0378; J1650; J2920; J3475; J7611; J7620; J8540

== ENCOUNTER 2023-01-22 11:00 | Outpatient (CLI) | payer BC | END 2023-01-22 11:01 | disposition home or self-care (01) | LOC: BICULT 11:00 | PROVIDERS: ATTEND Otolaryngology Otolaryngic Allergy | DX: E04.2 Nontoxic multinodular goiter (principal) | CPT/HCPCS: 76536 ==

== ENCOUNTER 2023-04-11 17:54 | Emergency (ER) | payer BC | END 2023-04-11 19:16 | disposition left against medical advice (07) | LOC: ERS 17:54 | DX: Z53.21 Procedure and treatment not carried out due to patient leaving prior to being seen by health care provider (principal) ==

== ENCOUNTER 2023-06-22 16:16 | Inpatient (IN) | payer BC, MEDICARE ==
[~2023-06-22 16:16] MED LIST: Iopamidol-370 76% 500 ML MDV (1 ML CHARGE) ONE
[2023-06-22] MEDS ORDERED: Dicyclomine 20 MG TAB ONE (16:47)
[2023-06-22 17:13] LABS: Delete Auto Diff?? YES; Hematocrit 40.5 % (36.0-47.0); Manual Diff?? YES; Mean Corpuscular HGB CONC 32.1 g/dL (32.0-36.0); Mean Corpuscular Hemoglobin 25.7 pg (27.0-31.0); Mean Platelet Volume 10.2 fL (7.4-10.4); Platelet Count 288 10x3/uL (130-400); RBC Distribution Width 13.4 % (11.5-14.5); Red Blood Cell (RBC) Count 5.06 mill/uL (4.20-5.40); White Blood Cell (WBC) Count 12.6 10x3/uL (4.8-10.8)
[2023-06-22 17:41] LABS: ALT (SGPT) 10 U/L (8-55); AST (SGOT) 15 U/L (5-34); Albumin 4.7 g/dL (3.4-4.8); Alkaline Phosphatase 112 U/L (40-110); Anion Gap 17 mmol/L (10-20); BUN (Urea Nitrogen) 18 mg/dL (9.8-20.1); Bilirubin, Total 0.4 mg/dL (0.2-1.2); Calc. Creatinine Clearance 0 mL/min (70-130); Calcium 9.7 mg/dL (7.8-10.44); Carbon Dioxide 24 mmol/L (23-31); Chloride 103 mmol/L (98-107); Estimated GFR 71; Globulin 3.5 g/dL (2.4-3.5); Glucose 139 mg/dL (80-115); Lipase 16 U/L (8-78); Potassium 3.5 mmol/L (3.5-5.1); Protein, Total 8.2 g/dL (5.8-8.1); Sodium 140 mmol/L (136-145); Troponin I Less than 0.010 ng/mL (< 0.028)
[2023-06-22] MEDS ORDERED: Ondansetron PF 4 MG/2 ML Vial ONE (17:59)
[2023-06-22 18:09] LABS: Lymphocytes 6 % (21-51); Monocytes 1 % (0-10); Neutrophil 92 % (42-75); Polychromasia SLIGHT = 2-3 cells (100X) (0-2/hpf); Reactive Lymphocytes 1 % (0-10)
[2023-06-22 18:10] LABS: Ovalocytes SLIGHT = 2-5 cells (100X) (0-1/hpf); Platelet Adequacy Comment Platelets Normal
[2023-06-22 18:17] LABS: Bacteria/HPF None Seen HPF (None Seen); Bilirubin Negative (Negative); Blood, Urine Negative (Negative); CAUTI Indications for Culture Dysuria,urgency,freq; Clarity Clear (Clear); Glucose, Urine (Dipstick) Normal (Negative); Ketone, Urine 10 mg/dL (Negative); Leukocyte Negative Leu/uL (Negative); Nitrite Negative (Negative); Protein, Urine (Dipstick) Negative (Neg-Trace); RBC/HPF 0-3 HPF (0-3); Specific Gravity, Urine 1.014 (1.002-1.036); Squamous Epithelial 0-3 HPF (0-3); Urobilinogen Normal mg/dL (Less than 2); WBC/HPF 0-3 HPF (0-3); pH, Urine 7.5 (5.0-9.0)
[2023-06-22 18:19] LABS: Urine Culture Reflex No No
[2023-06-22] MEDS ORDERED: LORazepam 2 MG/ML SYR.(CARPUJECT) ONE (19:14)
[2023-06-22] MEDS ORDERED: Piperacillin/Tazobactam 3.375 GM VIAL ONE (21:21)
[2023-06-22] MEDS ORDERED: Sodium Chloride 0.9% 100 ML ONE (21:22)
[2023-06-22] MEDS ORDERED: Metoclopramide HCl 10 MG (2 mL) VIAL IVP PRN (21:51)
[2023-06-22] MEDS ORDERED: Senokot S 8.6-50 MG TAB PO PRN (22:21)
[2023-06-22] MEDS ORDERED: Acetaminophen 325 MG TAB PO PRN (22:21)
[2023-06-22] MEDS ORDERED: Ondansetron PF 4 MG/2 ML Vial IVP PRN (22:24)
[2023-06-22] MEDS ORDERED: NIFEdipine XL 30 MG ER.TAB PO SCH (22:45)
[2023-06-22] MEDS: Sodium Chloride 0.9% 1,000 ML IV SCH (23:22)
[2023-06-23] MEDS: Piperacillin/Tazobactam 3.375 GM in Sodium Chloride 0.9% 100 ML IVPB SCH ×3 (02:09→18:36)
[2023-06-23] MEDS: Enoxaparin 40 MG (0.4 mL) SYRINGE SC SCH (09:11)
[2023-06-23] MEDS: NIFEdipine XL 30 MG ER.TAB PO SCH (09:11)
[2023-06-23] MEDS ORDERED: Promethazine HCl 12.5 MG in Sodium Chloride 0.9% 50 ML IVPB PRN (10:08)
[2023-06-23] MEDS ORDERED: Promethazine HCl 12.5 MG in Sodium Chloride 0.9% 50 ML IVPB STA (10:09)
[2023-06-23] MEDS ORDERED: Scopolamine 1 mg/72 hour Patch TOP SCH (11:00)
[2023-06-23 11:02] LABS: #Monocytes 0.6 thou/uL (0.11-0.59); #Neutrophils 8.1 thou/uL (1.40-6.50); %Basophils 0.1 % (0.0-1.0); %Lymphocytes 16.4 % (21.0-51.0); %Monocytes 6.1 % (0.0-10.0); %Neutrophils 77.1 % (42.0-75.0); Hematocrit 42.5 % (36.0-47.0); Hemoglobin 13.5 g/dL (12.0-16.0); Mean Corpuscular HGB CONC 31.8 g/dL (32.0-36.0); Mean Corpuscular Hemoglobin 25.1 pg (27.0-31.0); Mean Corpuscular Volume 79.1 fl (78.0-98.0); Mean Platelet Volume 10.7 fL (7.4-10.4); Platelet Count 312 10x3/uL (130-400); RBC Distribution Width 13.6 % (11.5-14.5); Red Blood Cell (RBC) Count 5.37 mill/uL (4.20-5.40); White Blood Cell (WBC) Count 10.5 10x3/uL (4.8-10.8)
[2023-06-23 11:27] LABS: ALT (SGPT) 9 U/L (8-55); AST (SGOT) 15 U/L (5-34); Albumin 4.4 g/dL (3.4-4.8); Alkaline Phosphatase 99 U/L (40-110); Anion Gap 16 mmol/L (10-20); BUN (Urea Nitrogen) 15 mg/dL (9.8-20.1); Bilirubin, Total 0.5 mg/dL (0.2-1.2); Calc. Creatinine Clearance 52 mL/min (70-130); Calcium 9.3 mg/dL (7.8-10.44); Carbon Dioxide 24 mmol/L (23-31); Chloride 98 mmol/L (98-107); Estimated GFR 56; Glucose 113 mg/dL (80-115); Potassium 2.7 mmol/L (3.5-5.1); Protein, Total 8.4 g/dL (5.8-8.1); Sodium 135 mmol/L (136-145)
[2023-06-23 12:57] VITALS: BMI 23.6
[2023-06-23] MEDS ORDERED: Albuterol 200 PUFF (6.7GM INHALER) INH PRN (16:41)
[2023-06-23] MEDS ORDERED: Ketorolac Tromethamine 30 MG (1 mL) VIAL IVP PRN (17:36)
[2023-06-23] MEDS ORDERED: Morphine 4 MG/ML VIAL SLOW IVP PRN (17:36)
[2023-06-23] MEDS ORDERED: Acetaminophen 500 MG TAB PO PRN (17:37)
[2023-06-23] MEDS ORDERED: Acetaminophen 500 MG TAB PO SCH (17:45)
[2023-06-23] MEDS: Sodium Chloride 0.9% 1,000 ML IV SCH (19:06)
[2023-06-23] MEDS: Mometasone 200 MCG/Formoterol 5 MCG 120 PUFF INHALER INH SCH (19:07)
[2023-06-23] MEDS: NS 0.9% w/ 40 MEQ KCL 1,000 ML IV SCH (20:05)
[2023-06-23] MEDS: Pregabalin 50 MG CAP PO SCH (20:07)
[2023-06-23] MEDS: Potassium Chloride 10 MEQ TAB PO SCH (20:08)
[2023-06-23] MEDS: cloNIDine 0.1 MG TAB PO SCH (20:08)
[2023-06-24] MEDS: Piperacillin/Tazobactam 3.375 GM in Sodium Chloride 0.9% 100 ML IVPB SCH ×3 (01:53→18:12)
[2023-06-24] MEDS: NS 0.9% w/ 40 MEQ KCL 1,000 ML IV SCH ×2 (02:51→09:37)
[2023-06-24 07:54] LABS: #Eosinphils 0.1 thou/uL (0.0-0.7); #Monocytes 0.8 thou/uL (0.11-0.59); #Neutrophils 2.6 thou/uL (1.40-6.50); %Basophils 0.5 % (0.0-1.0); %Eosinophils 1.2 % (0.0-10.0); %Lymphocytes 39.4 % (21.0-51.0); %Neutrophils 45.7 % (42.0-75.0); Hematocrit 36.5 % (36.0-47.0); Hemoglobin 11.3 g/dL (12.0-16.0); Mean Corpuscular Hemoglobin 25.6 pg (27.0-31.0); Mean Platelet Volume 10.9 fL (7.4-10.4); Platelet Count 252 10x3/uL (130-400); RBC Distribution Width 13.8 % (11.5-14.5); Red Blood Cell (RBC) Count 4.42 mill/uL (4.20-5.40); White Blood Cell (WBC) Count 5.8 10x3/uL (4.8-10.8)
[2023-06-24 07:57] LABS: Mean Corpuscular Volume 82.6 fl (78.0-98.0)
[2023-06-24] MEDS ORDERED: Potassium Chloride 20 MEQ TAB PO SCH (08:15)
[2023-06-24 08:29] LABS: ALT (SGPT) 8 U/L (8-55); AST (SGOT) 14 U/L (5-34); Albumin 3.6 g/dL (3.4-4.8); Alkaline Phosphatase 70 U/L (40-110); Anion Gap 17 mmol/L (10-20); BUN (Urea Nitrogen) 29 mg/dL (9.8-20.1); Bilirubin, Total 0.7 mg/dL (0.2-1.2); Calc. Creatinine Clearance 25 mL/min (70-130); Calcium 8.3 mg/dL (7.8-10.44); Carbon Dioxide 24 mmol/L (23-31); Chloride 108 mmol/L (98-107); Estimated GFR 24; Globulin 3.2 g/dL (2.4-3.5); Glucose 97 mg/dL (80-115); Potassium 3.5 mmol/L (3.5-5.1); Protein, Total 6.8 g/dL (5.8-8.1); Sodium 145 mmol/L (136-145)
[2023-06-24] MEDS: Mometasone 200 MCG/Formoterol 5 MCG 120 PUFF INHALER INH SCH ×2 (09:15→19:15)
[2023-06-24] MEDS: Potassium Chloride 10 MEQ TAB PO SCH ×2 (09:38→20:43)
[2023-06-24] MEDS: Montelukast Sodium 10 mg Tablet PO SCH (09:39)
[2023-06-24] MEDS: BuPROPion XL 150 MG ER.TAB PO SCH (09:39)
[2023-06-24] MEDS: Rosuvastatin 10 MG TAB PO SCH (09:39)
[2023-06-24] MEDS: Pregabalin 50 MG CAP PO SCH ×3 (09:40→20:43)
[2023-06-24] MEDS: Enoxaparin 40 MG (0.4 mL) SYRINGE SC SCH (09:40)
[2023-06-24] MEDS: Fluticasone Propionate Nasal Spray 16 gm Bottle NASAL SCH (09:40)
[2023-06-24] MEDS: NIFEdipine XL 30 MG ER.TAB PO SCH (09:42)
[2023-06-24] MEDS: Dextrose 5 %-0.45 % NaCl 1,000 ML IV SCH (18:12)
[2023-06-24] MEDS: cloNIDine 0.1 MG TAB PO SCH (20:44)
[2023-06-25] MEDS: Piperacillin/Tazobactam 3.375 GM in Sodium Chloride 0.9% 100 ML IVPB SCH ×2 (01:15→08:41)
[2023-06-25] MEDS: Dextrose 5 %-0.45 % NaCl 1,000 ML IV SCH ×2 (01:20→08:53)
[2023-06-25 07:13] LABS: Anion Gap 12 mmol/L (10-20); BUN (Urea Nitrogen) 29 mg/dL (9.8-20.1); Calc. Creatinine Clearance 45 mL/min (70-130); Calcium 8.1 mg/dL (7.8-10.44); Carbon Dioxide 19 mmol/L (23-31); Chloride 112 mmol/L (98-107); Estimated GFR 48; Glucose 111 mg/dL (80-115); Potassium 3.8 mmol/L (3.5-5.1); Sodium 139 mmol/L (136-145)
[2023-06-25] MEDS: Enoxaparin 30 MG (0.3 mL) SYRINGE SC SCH ×2 (08:40→08:52)
[2023-06-25] MEDS: NIFEdipine XL 30 MG ER.TAB PO SCH (08:40)
[2023-06-25] MEDS: Pregabalin 50 MG CAP PO SCH (08:40)
[2023-06-25] MEDS: Montelukast Sodium 10 mg Tablet PO SCH ×2 (08:40→08:41)
[2023-06-25] MEDS: Potassium Chloride 10 MEQ TAB PO SCH (08:40)
[2023-06-25] MEDS: Fluticasone Propionate Nasal Spray 16 gm Bottle NASAL SCH (08:41)
[2023-06-25] MEDS: Rosuvastatin 10 MG TAB PO SCH (08:41)
[2023-06-25] MEDS: BuPROPion XL 150 MG ER.TAB PO SCH (08:41)
[2023-06-25 09:40] VITALS: BP 116/72; TEMP 98.1
== END 2023-06-25 11:50 | disposition home or self-care (01) | DRG 392 ==
LOC: ERS 16:16 → T4-A 21:27 → OBSVTOIN 06-23 11:11
PROVIDERS: ADMIT Student in an Organized Health Care Education/Training Program; ATTEND Family Medicine
DX: K57.32 Diverticulitis of large intestine without perforation or abscess without bleeding (principal); N17.9 Acute kidney failure, unspecified; K52.9 Noninfective gastroenteritis and colitis, unspecified; F41.9 Anxiety disorder, unspecified; I10 Essential (primary) hypertension; Z79.899 Other long term (current) drug therapy; Z90.89 Acquired absence of other organs; F32.A Depression, unspecified; Z98.890 Other specified postprocedural states; F12.10 Cannabis abuse, uncomplicated; Z90.710 Acquired absence of both cervix and uterus
CPT/HCPCS: 36415; 74177; 80048; 80053; 81001; 83605; 83690; 83735; 84484; 85025; 87040; 93005; 96361; 96365; 96366; 96368; 96375; J0780; J1650; J1790; J2060; J2405; J2543; J2765; J3480; J3490; J7042; J7050; Q9967

== ENCOUNTER 2023-08-12 13:58 | Inpatient (IN) | payer BC, MEDICARE ==
[2023-08-12] MEDS ORDERED: Ondansetron PF 4 MG/2 ML Vial ONE ×2 (14:39→20:14)
[2023-08-12] MEDS ORDERED: Morphine 4 MG/ML VIAL ONE ×2 (14:39→21:21)
[2023-08-12 14:46] LABS: Hematocrit 29.3 % (36.0-47.0); Hemoglobin 9.6 g/dL (12.0-16.0); Manual Diff?? YES; Mean Corpuscular HGB CONC 32.8 g/dL (32.0-36.0); Mean Corpuscular Hemoglobin 25.7 pg (27.0-31.0); Mean Corpuscular Volume 78.3 fl (78.0-98.0); Mean Platelet Volume 8.9 fL (7.4-10.4); Platelet Count 560 10x3/uL (130-400); RBC Distribution Width 14.1 % (11.5-14.5); Red Blood Cell (RBC) Count 3.74 mill/uL (4.20-5.40); White Blood Cell (WBC) Count 28.6 10x3/uL (4.8-10.8)
[2023-08-12 14:47] LABS: Delete Auto Diff?? YES
[2023-08-12] MEDS ORDERED: Cefepime 1 GM VIAL ONE (14:59)
[2023-08-12] MEDS ORDERED: metroNIDAZOLE 500 MG (100 mL) BAG ONE (14:59)
[2023-08-12] MEDS ORDERED: Sodium Chloride 0.9% 100 ML ONE (14:59)
[2023-08-12 15:10] LABS: Band 2 % (5-11); CellaVision Operator ID LAB.MJL; Hypochromia SLIGHT = 6-15 cells HPF (0-5); Lymphocytes 6 % (21-51); Monocytes 4 % (0-10); Neutrophil 87 % (42-75); Ovalocytes SLIGHT = 2-5 cells HPF (0-1); Platelet Adequacy Comment Platelets Increased; Polychromasia SLIGHT = 2-3 cells HPF (0-2); Total Cell Count 101
[2023-08-12 16:03] LABS: ALT (SGPT) 15 U/L (8-55); AST (SGOT) 23 U/L (5-34); Albumin 3.5 g/dL (3.4-4.8); Alkaline Phosphatase 99 U/L (40-110); Anion Gap 23 mmol/L (10-20); BUN (Urea Nitrogen) 27 mg/dL (9.8-20.1); Bilirubin, Total 0.4 mg/dL (0.2-1.2); Calc. Creatinine Clearance 0 mL/min (70-130); Calcium 9.3 mg/dL (7.8-10.44); Carbon Dioxide 16 mmol/L (23-31); Chloride 99 mmol/L (98-107); Estimated GFR 39; Globulin 4.5 g/dL (2.4-3.5); Glucose 76 mg/dL (80-115); Lipase 20 U/L (8-78); Potassium 4.6 mmol/L (3.5-5.1); Sodium 133 mmol/L (136-145)
[2023-08-12 16:17] LABS: Influenza A by NAA Not Detected (NotDetected); Influenza B by NAA Not Detected (NotDetected); SARS-CoV-2 NAA Rapid Test Not Detected (NotDetected)
[2023-08-12 16:34] LABS: Bacteria/HPF None Seen HPF (None Seen); Bilirubin Negative (Negative); Blood, Urine Negative (Negative); CAUTI Indications for Culture Pelvic or flank pain; Clarity Clear (Clear); Glucose, Urine (Dipstick) Normal (Negative); Ketone, Urine 10 mg/dL (Negative); Leukocyte Negative Leu/uL (Negative); Nitrite Negative (Negative); Protein, Urine (Dipstick) 10 mg/dL (Neg-Trace); RBC/HPF 0-3 HPF (0-3); Specific Gravity, Urine 1.038 (1.002-1.036); Squamous Epithelial 0-3 HPF (0-3); Urobilinogen Normal mg/dL (Less than 2)
[2023-08-12 16:35] LABS: Urine Culture Reflex No No
[2023-08-12] MEDS ORDERED: Vancomycin 1 GM/200 ML (FROZEN) BAG ONE (17:38)
[2023-08-12] MEDS: Ondansetron PF 4 MG/2 ML Vial IVP PRN (20:17)
[2023-08-12] MEDS: Lactated Ringer's 1,000 ML IV SCH (20:18)
[2023-08-12 20:20] VITALS: BMI 26.6
[2023-08-12] MEDS: Morphine 4 MG/ML VIAL SLOW IVP PRN (21:37)
[2023-08-12] MEDS: Piperacillin/Tazobactam 3.375 GM in Sodium Chloride 0.9% 100 ML IVPB SCH (23:54)
[2023-08-13] MEDS ORDERED: MD-Gastroview 120 ML BOT ONE (10:18)
[2023-08-13] MEDS ORDERED: Acetaminophen 325 MG (10.15 ML) UDCUP PO PRN (12:02)
[2023-08-13] MEDS ORDERED: Acetaminophen 325 MG TAB PO PRN (12:22)
[2023-08-13] MEDS ORDERED: Ondansetron PF 4 MG/2 ML Vial ONE (12:37)
[2023-08-13] MEDS ORDERED: Lidocaine 1% PF 5 ML VIAL ONE (12:38)
[2023-08-13] MEDS ORDERED: fentaNYL 50 mcg/mL 1 mL Vial ONE (12:38)
[2023-08-13] MEDS: Albuterol 200 PUFF (6.7GM INHALER) INH PRN (14:41)
[2023-08-13] MEDS: HYDROcodone/Acetaminophen 5/325 mg Tablet PO PRN (16:11)
[2023-08-14 05:56] LABS: #Monocytes 0.9 thou/uL (0.11-0.59); %Basophils 0.3 % (0.0-1.0); %Eosinophils 0.2 % (0.0-10.0); %Lymphocytes 7.5 % (21.0-51.0); %Monocytes 6.3 % (0.0-10.0); %Neutrophils 85.3 % (42.0-75.0); Hematocrit 25.9 % (36.0-47.0); Hemoglobin 8.2 g/dL (12.0-16.0); Mean Corpuscular HGB CONC 31.7 g/dL (32.0-36.0); Mean Corpuscular Hemoglobin 25.8 pg (27.0-31.0); Mean Corpuscular Volume 81.4 fl (78.0-98.0); Mean Platelet Volume 9.3 fL (7.4-10.4); Platelet Count 515 10x3/uL (130-400); RBC Distribution Width 14.1 % (11.5-14.5); Red Blood Cell (RBC) Count 3.18 mill/uL (4.20-5.40)
[2023-08-14 06:27] LABS: Anion Gap 17 mmol/L (10-20); BUN (Urea Nitrogen) 17 mg/dL (9.8-20.1); Calc. Creatinine Clearance 79 mL/min (70-130); Calcium 8.8 mg/dL (7.8-10.44); Carbon Dioxide 21 mmol/L (23-31); Chloride 105 mmol/L (98-107); Estimated GFR 84; Glucose 83 mg/dL (80-115); Potassium 3.5 mmol/L (3.5-5.1); Sodium 139 mmol/L (136-145)
[2023-08-14] MEDS: Metoclopramide HCl 10 MG (2 mL) VIAL IVP PRN (18:33)
[2023-08-15 05:39] LABS: #Monocytes 0.7 thou/uL (0.11-0.59); #Neutrophils 6.6 thou/uL (1.40-6.50); %Basophils 0.4 % (0.0-1.0); %Eosinophils 0.2 % (0.0-10.0); %Lymphocytes 11.9 % (21.0-51.0); %Monocytes 7.9 % (0.0-10.0); %Neutrophils 79.4 % (42.0-75.0); Hematocrit 25.8 % (36.0-47.0); Hemoglobin 8.1 g/dL (12.0-16.0); Mean Corpuscular HGB CONC 31.4 g/dL (32.0-36.0); Mean Corpuscular Volume 79.6 fl (78.0-98.0); Mean Platelet Volume 9.2 fL (7.4-10.4); Platelet Count 523 10x3/uL (130-400); RBC Distribution Width 13.9 % (11.5-14.5); Red Blood Cell (RBC) Count 3.24 mill/uL (4.20-5.40); White Blood Cell (WBC) Count 8.3 10x3/uL (4.8-10.8)
[2023-08-15 06:06] LABS: Anion Gap 11 mmol/L (10-20); BUN (Urea Nitrogen) 10 mg/dL (9.8-20.1); Calc. Creatinine Clearance 85 mL/min (70-130); Calcium 8.5 mg/dL (7.8-10.44); Carbon Dioxide 30 mmol/L (23-31); Chloride 103 mmol/L (98-107); Estimated GFR 93; Glucose 107 mg/dL (80-115); Potassium 3.7 mmol/L (3.5-5.1); Sodium 140 mmol/L (136-145)
[2023-08-16 07:00] LABS: Hematocrit 29.4 % (36.0-47.0); Hemoglobin 9.1 g/dL (12.0-16.0); Manual Diff?? YES; Mean Corpuscular Hemoglobin 24.9 pg (27.0-31.0); Mean Corpuscular Volume 80.5 fl (78.0-98.0); Mean Platelet Volume 9.3 fL (7.4-10.4); Platelet Count 553 10x3/uL (130-400); RBC Distribution Width 13.8 % (11.5-14.5); Red Blood Cell (RBC) Count 3.65 mill/uL (4.20-5.40); White Blood Cell (WBC) Count 7.9 10x3/uL (4.8-10.8)
[2023-08-16 07:03] LABS: Delete Auto Diff?? YES
[2023-08-16 07:32] LABS: Anion Gap 17 mmol/L (10-20); BUN (Urea Nitrogen) 5 mg/dL (9.8-20.1); Calc. Creatinine Clearance 90 mL/min (70-130); Calcium 8.8 mg/dL (7.8-10.44); Carbon Dioxide 22 mmol/L (23-31); Chloride 101 mmol/L (98-107); Estimated GFR 96; Glucose 103 mg/dL (80-115); Potassium 3.4 mmol/L (3.5-5.1); Sodium 137 mmol/L (136-145)
[2023-08-16 08:54] LABS: Band 2 % (5-11); Eosinophils 2 % (0-10); Giant Platelets SLIGHT HPF (0-5); Large Platelets SLIGHT (None Seen); Lymphocytes 9 % (21-51); Monocytes 2 % (0-10); Neutrophil 85 % (42-75)
[2023-08-16 08:55] LABS: Platelet Adequacy Comment Appears Increased
[2023-08-18] MEDS: Scopolamine 1 mg/72 hour Patch TD SCH (12:30)
[2023-08-18] MEDS: Acetaminophen/Codeine 30-300mg Tablet PO PRN (21:12)
[2023-08-19] MEDS: Saccharomyces boulardii 250 MG CAP PO SCH (09:01)
[2023-08-19] MEDS: Enoxaparin 40 MG (0.4 mL) SYRINGE SC SCH (09:01)
[2023-08-19 09:28] VITALS: BP 111/73; TEMP 98.6
[2023-08-19] MEDS ORDERED: Morphine 4 MG/ML VIAL SLOW IVP SCH (10:45)
== END 2023-08-19 12:00 | disposition home or self-care (01) | DRG 863 ==
LOC: ERS 13:58 → ERHOLD 16:50 → MSONC 22:43
PROVIDERS: ADMIT Surgery; ATTEND Surgery
PROC: 0W9J30Z Drainage of Pelvic Cavity with Drainage Device, Percutaneous Approach (ICD-10-PCS; principal; 2023-08-13)
DX: T81.43XA Infection following a procedure, organ and space surgical site, initial encounter (principal); N17.9 Acute kidney failure, unspecified; I10 Essential (primary) hypertension; J45.909 Unspecified asthma, uncomplicated; F41.9 Anxiety disorder, unspecified; Y83.8 Other surgical procedures as the cause of abnormal reaction of the patient, or of later complication, without mention of misadventure at the time of the procedure; F32.A Depression, unspecified; Z90.49 Acquired absence of other specified parts of digestive tract; Z98.890 Other specified postprocedural states
CPT/HCPCS: 36415; 49020; 74018; 74177; 74270; 77002; 80048; 80053; 81001; 83605; 83690; 83735; 85025; 87040; 87070; 87077; 87186; 87205; 93005; 96365; 96367; 96375; J0692; J2270; J2405; J2543; J2765; J3010; J3370-JW; J3490; J7120; Q9963; Q9967

== ENCOUNTER 2023-09-17 07:13 | Outpatient (CLI) | payer BC, MEDICARE ==
[2023-09-17] MEDS ORDERED: MD-Gastroview 120 ML BOT ONE (08:03)
== END 2023-09-17 07:14 | disposition home or self-care (01) ==
LOC: RAD 07:13
PROVIDERS: ATTEND Specialist
DX: K57.92 Diverticulitis of intestine, part unspecified, without perforation or abscess without bleeding (principal)
CPT/HCPCS: 74280; Q9963

== ENCOUNTER 2023-09-18 11:21 | Outpatient (CLI) | payer BC, MEDICARE ==
[2023-09-18 13:04] LABS: #Basophils 0.04 10x3/uL (0.0-0.2); #Eosinphils 0.28 10x3/uL (0.0-0.5); #Monocytes 0.47 10x3/uL (0.0-1.1); #Neutrophils 2.35 10x3/uL (1.5-8.4); %Basophils 0.9 % (0.0-2.0); %Lymphocytes 32.3 % (18.0-47.0); %Monocytes 10.1 % (0.0-10.0); %Neutrophils 50.5 % (40.0-75.0); Mean Corpuscular HGB CONC 30.3 g/dL (32.0-36.0); Mean Corpuscular Hemoglobin 25.6 pg (27.0-33.0); Mean Corpuscular Volume 84.4 fl (81.6-98.3); Mean Platelet Volume 10.9 fl (7.4-10.4); Platelet Count 257 10x3/uL (150-450); RBC Distribution Width 15.9 % (11.5-14.5); Red Blood Cell (RBC) Count 3.91 10x6/uL (3.90-5.03); White Blood Cell (WBC) Count 4.7 10x3/uL (3.5-10.5)
[2023-09-18 13:27] LABS: Anion Gap 12 mmol/L (10-20); BUN (Urea Nitrogen) 23 mg/dL (9.8-20.1); Calc. Creatinine Clearance 0 mL/min (70-130); Calcium 9.1 mg/dL (7.8-10.44); Carbon Dioxide 23 mmol/L (23-31); Chloride 110 mmol/L (98-107); Estimated GFR 75; Glucose 80 mg/dL (80-115); Potassium 4.3 mmol/L (3.5-5.1); Sodium 141 mmol/L (136-145)
[2023-09-18 16:35] LABS: Hemoglobin A1c 5.2 % (4.0-6.0)
== END 2023-09-18 11:22 | disposition home or self-care (01) ==
LOC: LABBT 11:21
PROVIDERS: ATTEND Specialist
DX: Z01.818 Encounter for other preprocedural examination (principal); K57.92 Diverticulitis of intestine, part unspecified, without perforation or abscess without bleeding
CPT/HCPCS: 71046; 80048; 83036; 85025; 93005; 93010

== ENCOUNTER 2024-04-28 15:46 | Outpatient (CLI) | payer BC | END 2024-04-28 15:47 | disposition home or self-care (01) | LOC: BICULT 15:46 | PROVIDERS: ATTEND Otolaryngology Otolaryngic Allergy | DX: D34 Benign neoplasm of thyroid gland (principal) | CPT/HCPCS: 76536 ==

== ENCOUNTER 2024-07-11 08:58 | Outpatient (CLI) | payer BC | END 2024-07-11 08:59 | disposition home or self-care (01) | LOC: RAD 08:58 | PROVIDERS: ATTEND Internal Medicine | DX: R06.00 Dyspnea, unspecified (principal) | CPT/HCPCS: 71046 ==